=== PATIENT | female | born 1935 | race Caucasian/White ===

== ENCOUNTER 2016-10-27 09:11 | Emergency (ER) | payer OTHER ==
[2016-10-27 09:18] VITALS: TEMP 97.6; BMI 32.1
[2016-10-27] MEDS ORDERED: OXYCODONE/APAP 5/325MG COMBO TABLET PO ONE (10:44)
--- NOTE | 2016-10-27 10:50 | PDOC ---
History of Present Illness - General History Source: Patient, Family Exam Limitations: No Limitations - History of Present Illness Initial Comments: 10/27/16 11:07 The patient is an 81-year-old woman, accompanied by family, from home, with a significant past medical history of hypertension and chronic constipation who presents to the emergency department for further evaluation of left arm pain status post fall during the night. No pre-syncope, LOC, head injury. As per son , the patient at baseline is ambulatory and can perform her own daily activities and states that this event has never happened before. As per son, the patient woke up in the middle of the night to use the bathroom, when she felt lightheaded and fell on the left side of her body. She struck her left shoulder when she fell.She describes her pain as a tightness sensation that started from her shoulder and radiates down her elbow. Her pain is exacerbated with movements with a rated 10/10 in intensity. No recent illnesses. No other bodily pain or injury. No recent changes in medications. She denies Chest pain, SOB, dizziness, or palpitation. She denies headache, fever, chills, cough, N/V/D, visual changes, neck pain, back pain, pelvic pain, leg pain. No past medical history or diabetes mellitus, CVA/TIAs and MIs. Allergies: None Known Past Surgical History: None reported Social History: No tobacco, ETOH and recreational drug use. Primary Care Physician: Dr. Harry Donaldson [phone] Remainder of the review of systems is negative. <Latisha Ramirez - Last Filed: 10/27/16 12:42> <Shabnam Avina - Last Filed: 10/27/16 13:41> - General Chief Complaint: Lightheaded Stated Complaint: FALL/ LT ARM PAIN Time Seen by Provider: 10/27/16 10:29 Past History <Latisha Ramirez - Last Filed: 10/27/16 12:42> - Past Medical History HTN: Yes - Psycho/Social/Smoking Cessation Hx Anxiety: No Suicidal Ideation: No Smoking Status: No Smoking History: Never smoked Have you smoked in the past 12 months: No Number of Cigarettes Smoked Daily: 0 Information on smoking cessation initiated: No Hx Alcohol Use: No Drug/Substance Use Hx: No <Shabnam Avina Last Filed: 10/27/16 13:41> - Past Medical History Allergies/Adverse Reactions: Allergies Allergy/AdvReac Type Severity Reaction Status Date / Time No Known Allergies Allergy Verified 10/27/16 09:14 Home Medications: Ambulatory Orders Bisacodyl [Gentle Laxative] 5 mg PO PRN PRN 04/06/12 Valsartan [Diovan] 80 mg PO DAILY 04/06/12 Oxycodone HCl/Acetaminophen [Percocet 5-325 mg Tablet] 1 tab PO Q6H PRN #14 tablet MDD 5 10/27/16 Review of Systems - Review of Systems Able to Perform ROS?: Yes Comments:: 10/27/16 11:07 12 point review of systems is as per history of present illness and otherwise negative. <Ltaisha Ramirez - Last Filed: 10/27/16 12:42> *Physical Exam - Vital Signs Last Vital Signs Temp Pulse Resp BP Pulse Ox 97.6 F 82 18 170/72 100 10/27/16 09:16 10/27/16 09:16 10/27/16 09:16 10/27/16 09:16 10/27/16 09:16 <Latisha Ramirez - Last Filed: 10/27/16 12:42> - Vital Signs Last Vital Signs Temp Pulse Resp BP Pulse Ox 97.6 F 82 18 170/72 100 10/27/16 09:16 10/27/16 09:16 10/27/16 09:16 10/27/16 09:16 10/27/16 09:16 - Physical Exam Comments: 10/27/16 10:45 Physical exam Last Vital Signs Temp Pulse Resp BP Pulse Ox 97.6 F 82 18 170/72 100 10/27/16 09:16 10/27/16 09:16 10/27/16 09:16 10/27/16 09:16 10/27/16 09:16 GENERAL: The patient is awake, alert, and fully oriented, and in no apparent distress. HEAD: Normal with no signs of trauma. EYES: extraocular movements intact, sclera anicteric, conjunctiva are normal. ENT: Moist mucous membranes. NECK: Normal range of motion, supple no C-spine tenderness LUNGS: Breath sounds equal, clear to auscultation bilaterally. No wheezes, and no crackles. HEART: Regular rate and rhythm, normal S1 and S2 without murmur, rub or gallop. ABDOMEN: Soft, nontender, normoactive bowel sounds. No guarding, no rebound. No masses appreciated. BACK: No T spine or LS spine tenderness No posterior rib tenderness No CVA tenderness EXTREMITIES: Pelvis stable Full of motion of hips and knees bilaterally Full range of motion of right shoulder and right elbow There is exquisite tenderness of the left shoulder and left humerus to the left elbow There is full range of motion of the left wrist, and patient is able to make a fist without difficulty The radial pulse is full, sensation of the hand is intact, and the fingers are warm with good capillary refill NEUROLOGICAL: Motor 5 out of 5 and equal in the upper and lower extremities bilaterally-limited by pain in the left upper extremity Alert and answering questions, no evidence of head trauma, grossly nonfocal neurologic exam PSYCH: Normal mood, normal affect. SKIN: Warm, Dry, <Shabnam Avina - Last Filed: 10/27/16 13:41> ED Treatment Course - RADIOLOGY Radiology Studies Ordered: Category Date Time Status ELBOW-LEFT [RAD] Stat Radiology 10/27/16 10:41 Ordered HUMERUS-LEFT [RAD] Stat Radiology 10/27/16 10:41 Ordered SHOULDER-LEFT [RAD] Stat Radiology 10/27/16 10:41 Ordered <Shbanam Avina - Last Filed: 10/27/16 13:41> Medical Decision Making - Medical Decision Making 10/27/16 12:42 Called extension [id number] regarding unread images. <Latisha Ramirez - Last Filed: 10/27/16 12:42> - Medical Decision Making 10/27/16 10:48 Patient walking to the bathroom during the night, got a little dizzy, and fell landing on her left shoulder She has been having left shoulder and left humerus pain since then She denies any head injury or loss of consciousness There is no syncopal or presyncope as the cause of the fall She's had no recent intercurrent illnesses There was no head trauma or loss of consciousness She denies any other injury There is no recent change in medication dose, and no recent intercurrent illnesses 10/27/16 11:44 Left shoulder series as read by me- Impacted humeral head fracture/femoral neck fracture 10/27/16 12:19 Pt feeling much better after percocet Sling applied 10/27/16 13:03 Pt feeling much better with percocet 10/27/16 13:40 X-rays as read by radiology Acute left humeral neck fracture with no dislocation from the glenoid fossa No fracture of the elbow <Shanbam Avina - Last Filed: 10/27/16 13:41> *DC/Admit/Observation/Transfer - Attestations Scribe Attestion: 10/27/16 11:07 Documentation prepared by Latisha Ramirez, acting as forensic medical examiner for Shabnam Avina MD. <Latisha Ramirez - Last Filed: 10/27/16 12:42> <Shabnam Avina - Last Filed: 10/27/16 13:41> Diagnosis at time of Disposition: Fracture of humeral head - Discharge Dispostion Disposition: HOME Condition at time of disposition: Stable - Prescriptions Prescriptions: Oxycodone HCl/Acetaminophen [Percocet 5-325 mg Tablet] 1 tab PO Q6H PRN #14 tablet MDD 5 PRN Reason: Pain - Referrals Referrals: Juanpablo Donaldson [Primary Care Provider] - Francisco J Palmer MD [Staff Physician] - Kai Can MD [Staff Physician] - - Patient Instructions Printed Discharge Instructions: How to Use a Sling, DI for Humeral Fracture Additional Instructions: Keep sling in place Ice packs off and on to the shoulder Percocet if needed for pain-one pill every 6 hours This medication may cause some drowsiness, so please assist her with walking so she does not fall again Please call orthopedics-Dr. Palmer, or Dr. Can-today for an appointment She needs to be seen before the end of the week Keep the sling in place until seen by orthopedics The x-ray reading is a preliminary reading, if there is any change when the radiologist reads the x-rays you will be called Followup with your primary care physician in 24-48 hours Return immediately if you worsen in any way Take your medications as directed
[2016-10-27] MEDS ORDERED: OXYCODONE/APAP 5/325MG COMBO TABLET ONE (11:09)
[2016-10-27 13:21] VITALS: BP 157/60; PULSE 73
== END 2016-10-27 13:21 | disposition home or self-care (01) ==
LOC: JER 09:11
DX: S42.295A Other nondisplaced fracture of upper end of left humerus, initial encounter for closed fracture (principal); I10 Essential (primary) hypertension; W18.39XA Other fall on same level, initial encounter; Y93.89 Activity, other specified; Y92.012 Bathroom of single-family (private) house as the place of occurrence of the external cause
CPT/HCPCS: 73030-TC-LT; 73060-TC-LT; 73070-TC-LT; 99282-25

== ENCOUNTER 2017-05-05 14:40 | Emergency (ER) | payer OTHER ==
[2017-05-05 14:45] VITALS: BP 144/77; PULSE 78; TEMP 97.8; BMI 34.0
[2017-05-05] MEDS ORDERED: IBUPROFEN 600 MG TABLET (FP) PO ONE ×2 (15:13→15:18)
--- NOTE | 2017-05-05 15:26 | PDOC ---
History of Present Illness - General Chief Complaint: Pain Stated Complaint: KNEE PAIN Time Seen by Provider: 05/05/17 14:52 History Source: Patient, Family (Son Andrzej Bangura) Exam Limitations: No Limitations - History of Present Illness Initial Comments: 05/05/17 15:16 This is an 82yo woman with PMH HTN and left humeral head fx who presents today with 2 days of worsening atraumatic right knee pain. She states that she felt pain to anterior knee inferior to patella upon awakening on 05/03. She states walking makes the pain worse. She is unable to describe pain or rate severity. She is able to ambulate but states the knee feels unstable. She has tried using voltaren gel with minimal relief. Has not tried using oral pain medications. Timing/Duration: other (2 days) Severity: moderate Associated Symptoms: denies: denies symptoms Past History - Past Medical History Allergies/Adverse Reactions: Allergies Allergy/AdvReac Type Severity Reaction Status Date / Time No Known Allergies Allergy Verified 05/05/17 14:46 Home Medications: Ambulatory Orders Valsartan [Diovan] 80 mg PO DAILY 04/06/12 HTN: Yes - Psycho/Social/Smoking Cessation Hx Anxiety: No Suicidal Ideation: No Smoking Status: No Smoking History: Never smoked Have you smoked in the past 12 months: No Number of Cigarettes Smoked Daily: 0 Hx Alcohol Use: No Drug/Substance Use Hx: No Substance Use Type: None Review of Systems - Review of Systems Able to Perform ROS?: Yes Is the patient limited Gambian proficient: Yes Constitutional: No: Symptoms Reported HEENTM: No: Symptoms Reported Respiratory: No: Symptoms reported Cardiac (ROS): No: Symptoms Reported ABD/GI: No: Symptoms Reported : No: Symptoms Reported Musculoskeletal: Yes: Joint Pain (right knee) Integumentary: No: Symptoms Reported Neurological: No: Symptoms reported *Physical Exam - Vital Signs Last Vital Signs Temp Pulse Resp BP Pulse Ox 97.8 F 78 20 144/77 98 05/05/17 14:41 05/05/17 14:41 05/05/17 14:41 05/05/17 14:41 05/05/17 14:41 - Physical Exam General Appearance: Yes: Appropriately Dressed. No: Apparent Distress HEENT: positive: EOMI, ALESSIA, Normal Voice Neck: positive: Trachea midline, Supple Respiratory/Chest: positive: Lungs Clear, Normal Breath Sounds. negative: Respiratory Distress Cardiovascular: positive: Regular Rhythm, Regular Rate, S1, S2, Edema (non- pitting dependant bilateral lower extremities) Gastrointestinal/Abdominal: positive: Normal Bowel Sounds, Soft. negative: Tender, Organomegaly Musculoskeletal: positive: Normal Inspection. negative: CVA Tenderness, Decreased Range of Motion Extremity: positive: Normal Range of Motion, Other ((-) Donny's, (-) Rboert's. no calf tenderness or cords present.) Integumentary: positive: Normal Color, Dry, Warm. negative: Ecchymosis Neurologic: positive: mold construction supervisor II-XII NML intact, Fully Oriented, Alert, Normal Mood/ Affect, Motor Strength 02/05 ED Treatment Course - RADIOLOGY Radiology Studies Ordered: Category Date Time Status KNEE 3 POS-RIGHT [RAD] Stat Radiology 05/05/17 15:14 Ordered Medical Decision Making - Medical Decision Making 05/05/17 15:26 This is an 82yo woman with PMH HTN and left humeral head fx who presents today with 2 days of worsening atraumatic right knee pain. She states that she felt pain to anterior knee inferior to patella upon awakening on 05/03. She states walking makes the pain worse. She is unable to describe pain or rate severity. She is able to ambulate but states the knee feels unstable. She has tried using voltaren gel with minimal relief. Has not tried using oral pain medications. No crepitus palpated. No obvious deformity. Able to ROM against resistance. (-) Donny's sign. Dx: knee pain - Motrin 600mg now - Xrays of right knee - re-evaluate 05/05/17 15:51 Xrays show medial narrowing of right knee. No acute fracture present. Pain relief after PO motrin. ortho f/u with Pamella *DC/Admit/Observation/Transfer Diagnosis at time of Disposition: Arthritis of right knee - Discharge Dispostion Disposition: HOME Condition at time of disposition: Stable Admit: No - Referrals Referrals: Kai Can MD [Staff Physician] - - Patient Instructions Printed Discharge Instructions: DI for Arthritis Additional Instructions: Rest will make your pain better. Rent a walker and use until you follow up with Dr. Can. Take ibuprofen or naproxen for pain as directed by sole polisher's instructions. Use diclofenac gel as previously prescribed. Eat a well balanced diet. Return to the ER for worsening pain, swelling, inability to walk or any other concerns.
== END 2017-05-05 16:08 | disposition home or self-care (01) ==
LOC: JERFT 14:40
DX: M17.11 Unilateral primary osteoarthritis, right knee (principal); I10 Essential (primary) hypertension
CPT/HCPCS: 73562-TC-RT; 99281-25

== ENCOUNTER 2018-05-30 16:14 | Emergency (ER) | payer OTHER ==
--- NOTE | 2018-05-30 16:22 | PDOC ---
Rapid Medical Evaluation Chief Complaint: Pain Time Seen by Provider: 05/30/18 16:22 Medical Evaluation: Allergies Allergy/AdvReac Type Severity Reaction Status Date / Time No Known Allergies Allergy Verified 05/30/18 16:18 05/30/18 16:24 This is an 83-year old female with history of left humeral head fx, hysterectomy (fibroids), bilateral eye surgery (last one month ago), chronic knee pain requiring steroid injections brought in by family for one month of intermittent RUE swelling. Hand is not painful, but seems "weak" (she is unable to close it). No chest pain. No LE edema. Alert, oriented, no distress. RRR, S1/S2. Lungs CTAB. RUE edema. Plan: -EKG -Labs including CBC, CMP, PT/INR -RUE u/s r/o DVT -No Main ED for further evaluation
[2018-05-30 16:24] VITALS: TEMP 98; BMI 34.0
[2018-05-30 16:59] LABS: BASO % 0.8 % (0-2.0); EOS % 1.5 % (0-4.5); LYMPH % 17.2 % (8-40); MCH 27.1 pg (25.7-33.7); MCHC 33.3 g/dl (32.0-36.0); MEAN CELL VOLUME 81.3 fl (80-96); MEAN PLT VOLUME 7.7 fl (7.5-11.1); MONO % 7.4 % (3.8-10.2); NEUT % 73.1 % (42.8-82.8); PLATELET COUNT 403 K/MM3 (134-434); RBC 3.69 M/mm3 (3.60-5.2); RDW 13.7 % (11.6-15.6); WHITE BLOOD COUNT 7.1 K/mm3 (4.0-10.0)
[2018-05-30 17:30] LABS: ALBUMIN 2.9 g/dl (3.4-5.0); ANION GAP 9 MMOL/L (8-16); BILIRUBIN,TOTAL 0.3 mg/dL (0.2-1.0); BLOOD UREA NITROGEN 22 mg/dL (7-18); CHLORIDE 107 mmol/L (98-107); CO2 25 mmol/L (21-32); CREATININE 0.6 mg/dL (0.55-1.02); GLUCOSE,RANDOM 154 mg/dL (74-106); POTASSIUM 4.8 mmol/L (3.5-5.1); SGOT/AST 17 U/L (15-37); SGPT/ALT 29 U/L (12-78); SODIUM 141 mmol/L (136-145); TOT PROT 7.1 g/dl (6.4-8.2)
[2018-05-30 17:31] LABS: ALK PHOS 102 U/L (45-117)
[2018-05-30 17:44] LABS: INR 1.04 (0.83-1.09); PROTHROMBIN TIME (PATIENT) 11.8 SEC (9.7-13.0)
--- NOTE | 2018-05-30 18:41 | PDOC ---
History of Present Illness <Yumiko Alfonso - Last Filed: 05/30/18 19:46> - General History Source: Patient, Family Exam Limitations: No Limitations - History of Present Illness Initial Comments: 05/30/18 18:36 Ms. Lozano is a 83 yo F with a hx of bilateral chronic knee pain and HTN who presents to the ED with intermittent RUE swelling for the past 2 months. She states she has been having RUE swelling that is worse in the morning and improves throughout the day. She complains of concurrent progressive weakness generally, but more acutely throughout her right arm and has decreased gripping strength. 2 years ago, she states she fractured her right humerus at the head. Denies the following: fever, SOB, chest pain, nausea vomiting, dizziness, lightheadness, melena, hematochezia, dysuria, hematuria, abdominal pain, and leg swelling/pain. Denies hx of blood clots, cancer, prolonged sitting/ immobilization, and recent extremity surgeries. Pmhx: HTN Shx: R cataract repair 1 month ago. L cataract repair 1 year ago. Meds: Does not know full list, but denies anticoagulants and aspirin. Social hx: Denies smoking, drugs, and alcohol use. Allergies: NKDA. <Nomi Anderson - Last Filed: 05/31/18 06:50> - General Chief Complaint: Pain Stated Complaint: RT ARM PAIN Time Seen by Provider: 05/30/18 16:22 Past History <Yumiko Alfonso - Last Filed: 05/30/18 19:46> - Past Medical History COPD: No HTN: Yes - Suicide/Smoking/Psychosocial Hx Smoking Status: No Smoking History: Never smoked Have you smoked in the past 12 months: No Number of Cigarettes Smoked Daily: 0 Information on smoking cessation initiated: No Hx Alcohol Use: No Drug/Substance Use Hx: No Substance Use Type: None <Nomi Anderson - Last Filed: 05/31/18 06:50> - Past Medical History Allergies/Adverse Reactions: Allergies Allergy/AdvReac Type Severity Reaction Status Date / Time No Known Allergies Allergy Verified 05/30/18 16:18 Home Medications: Ambulatory Orders Valsartan [Diovan] 80 mg PO DAILY 04/06/12 Review of Systems - Review of Systems Able to Perform ROS?: Yes Constitutional: Yes: Weakness. No: Chills, Diaphoresis, Fever HEENTM: No: Recent change in vision, Ear Pain, Nose Pain, Throat Pain, Mouth Pain Respiratory: No: Cough, Shortness of Breath, Hemoptysis Cardiac (ROS): No: Chest Pain, Palpitations, Syncope, Chest Tightness ABD/GI: No: Blood Streaked Bowels, Constipated, Diarrhea, Nausea, Rectal Bleeding, Vomiting, Tarry Stools : No: Burning, Dysuria, Hematuria Musculoskeletal: Yes: Joint Pain, Muscle Weakness. No: Back Pain Integumentary: No: Rash Neurological: Yes: Weakness. No: Headache, Numbness, Paresthesia, Ataxia, Dizziness Psychiatric: No: Change in Appetite Endocrine: No: Unexplained Weight Gain Hematologic/Lymphatic: No: Anemia <Nomi Anderson - Last Filed: 05/31/18 06:50> *Physical Exam - Vital Signs Last Vital Signs Temp Pulse Resp BP Pulse Ox 98.0 F 81 18 153/61 100 05/30/18 16:21 05/30/18 16:21 05/30/18 16:21 05/30/18 16:21 05/30/18 16:21 <Yumiko Alfonso - Last Filed: 05/30/18 19:46> - Vital Signs Last Vital Signs Temp Pulse Resp BP Pulse Ox 98.0 F 81 18 153/61 100 05/30/18 16:21 05/30/18 16:21 05/30/18 16:21 05/30/18 16:21 05/30/18 16:21 <Nomi Anderson - Last Filed: 05/31/18 06:50> ED Treatment Course - LABORATORY CBC & Chemistry Diagram: 05/30/18 16:53 05/30/18 16:53 - ADDITIONAL ORDERS Additional order review: Laboratory Results 05/30/18 05/30/18 16:53 16:53 PT with INR 11.80 INR 1.04 Sodium 141 Potassium 4.8 Chloride 107 Carbon Dioxide 25 Anion Gap 9 BUN 22 H Creatinine 0.6 Creat Clearance w eGFR > 60 Random Glucose 154 H Calcium 9.0 Total Bilirubin 0.3 AST 17 ALT 29 Alkaline Phosphatase 102 Total Protein 7.1 Albumin 2.9 L 05/30/18 16:53 RBC 3.69 MCV 81.3 MCHC 33.3 RDW 13.7 MPV 7.7 D Neutrophils % 73.1 Lymphocytes % 17.2 D Monocytes % 7.4 Eosinophils % 1.5 D Basophils % 0.8 <Yumiko Alfonso - Last Filed: 05/30/18 19:46> - LABORATORY CBC & Chemistry Diagram: 05/30/18 16:53 05/30/18 16:53 - ADDITIONAL ORDERS Additional order review: Laboratory Results 05/30/18 05/30/18 16:53 16:53 PT with INR 11.80 INR 1.04 Sodium 141 Potassium 4.8 Chloride 107 Carbon Dioxide 25 Anion Gap 9 BUN 22 H Creatinine 0.6 Creat Clearance w eGFR > 60 Random Glucose 154 H Calcium 9.0 Total Bilirubin 0.3 AST 17 ALT 29 Alkaline Phosphatase 102 Total Protein 7.1 Albumin 2.9 L 05/30/18 16:53 RBC 3.69 MCV 81.3 MCHC 33.3 RDW 13.7 MPV 7.7 D Neutrophils % 73.1 Lymphocytes % 17.2 D Monocytes % 7.4 Eosinophils % 1.5 D Basophils % 0.8 - RADIOLOGY Radiology Studies Ordered: Category Date Time Status SHOULDER-RIGHT [RAD] Stat Radiology 05/30/18 18:23 Ordered <MonicaNomi - Last Filed: 05/31/18 06:50> Medical Decision Making - Medical Decision Making 05/31/18 06:46 83 yo F with hx of htn presents to ED with RUE swelling ongoing intermittently for 2 months with generalized weakness in the proximal joints ddx: DVT, rheumatological (polymyalgia rheumatica), osteoarthritis, nerve impingement secondary to previous fracture in the axillary region, Initial vitals: Initial Vital Signs Temp Pulse Resp BP Pulse Ox 98.0 F 81 18 153/61 100 05/30/18 16:21 05/30/18 16:21 05/30/18 16:21 05/30/18 16:21 05/30/18 16:21 Work up Laboratory Tests 05/30/18 05/30/18 05/30/18 16:53 16:53 16:53 WBC 7.1 RBC 3.69 Hgb 10.0 L Hct 30.0 L D MCV 81.3 MCH 27.1 MCHC 33.3 RDW 13.7 Plt Count 403 D MPV 7.7 D Absolute Neuts (auto) 5.2 Neutrophils % 73.1 Lymphocytes % 17.2 D Monocytes % 7.4 Eosinophils % 1.5 D Basophils % 0.8 Nucleated RBC % 0 PT with INR 11.80 INR 1.04 Sodium 141 Potassium 4.8 Chloride 107 Carbon Dioxide 25 Anion Gap 9 BUN 22 H Creatinine 0.6 Creat Clearance w eGFR > 60 Random Glucose 154 H Calcium 9.0 Total Bilirubin 0.3 AST 17 ALT 29 Alkaline Phosphatase 102 Total Protein 7.1 Albumin 2.9 L xrays did not show acute fractures in the shoulder region or dislocations. RUE US did not show the presence of a DVT. Based on the patient's hx and presenting symptoms, it seems to be more rheumatological such as PMR? Recommended to patient to follow up with PCP and will refer her to a safety risk lead. Dispo: Home <Nomi Anderson - Last Filed: 05/31/18 06:50> *DC/Admit/Observation/Transfer - Discharge Dispostion Decision to Admit order: No <NatyYumiko Amarilis - Last Filed: 05/30/18 19:46> - Discharge Dispostion Decision to Admit order: No <Nomi Anderson - Last Filed: 05/31/18 06:50> Diagnosis at time of Disposition: Arm pain Qualifiers: Laterality: right Qualified Code(s): M79.601 - Pain in right arm - Discharge Dispostion Disposition: HOME Condition at time of disposition: Improved - Referrals Referrals: Wilver Prado MD [Staff Physician] - Berlin Kirby MD [Staff Physician] - Kady Phillips MD [Staff Physician] - Markell Adkins DO [Staff Physician] - - Patient Instructions Printed Discharge Instructions: DI for Arm Pain Additional Instructions: you have a normal ultrasound, no clots you may need a rheumatology /immunology workup, specialists have been provided for followup your blood work is normal as well. please follow up with primary doctor for further workup and evaluation, as your blood work is reassuringly normal. Print Language: ANGUILLAN Addendum entered and electronically signed by Nomi Anderson RESIDENT 06:56: Physical Exam Vital Sings: Vital Signs Temperature 98.0 F 05/30/18 20:11 Pulse Rate 87 05/30/18 20:11 Respiratory Rate 18 05/30/18 20:11 Blood Pressure 145/79 05/30/18 20:11 O2 Sat by Pulse Oximetry (%) 98 05/30/18 20:11 Physical exam for visit on 05/30/2018 Constitutional: Yes: Well Nourished, No Distress, Calm Eyes: Yes: WNL, EOM Intact, PERRL HENT: Yes: WNL, Atraumatic, Normocephalic Neck: Yes: WNL. No: Lymphadenopathy, Tenderness Cardiovascular: Yes: WNL, Regular Rate and Rhythm Respiratory: Yes: WNL, Regular, CTA Bilaterally ...Breath Sounds: DANNY Clear, LLL Clear, RUL Clear, RML Clear, RLL Clear Gastrointestinal: Yes: WNL, Normal Bowel Sounds, Soft Renal/: Yes: WNL. No: CVA Tenderness - Left, CVA Tenderness - Right Musculoskeletal: Yes: Other (Joint stiffness in the proximal regions (hips and shoulders) bilaterally. Mild swelling of arms throughout bilaterally with intact pulses and equal bilaterally motor strength and sensation in the upper extremities. ) Extremities: Yes: Other (refer to note in musculoskeletal). No: Calf Tenderness , Cold, Cyanosis, Deformity, Delayed Capillary Refill, Erythema Integumentary: Yes: WNL Neurological: Yes: WNL, Alert, Oriented, Cran Nerves II-XII Intact. No: Ataxia , Confusion, Facial Droop, Loss of Sensation, Numbness, Seizure, Unsteady Gait ...Motor Strength: WNL Psychiatric: Yes: WNL, Alert, Oriented Labs: CBC, BMP 05/30/18 16:53 05/30/18 16:53
--- NOTE | 2018-05-30 19:34 | PDOC ---
Attending Attestation - Resident Resident Name: MonicaNomi - ED Attending Attestation I have performed the following: I have examined & evaluated the patient, The case was reviewed & discussed with the resident, I agree w/resident's findings & plan - HPI HPI: 05/30/18 19:40 Blake 83 year old female, with a significant past medical history of HTN, left humeral head fracture, and chronic knee pain, who presents to the emergency department with, 2 months of intermittent right upper extremity swelling, weakness, and pain. As per patients family, her symptoms are worse in the mornings with associated decreased gripping strength. The patient is being followed up by Dr. Anika Geronimo for her symptoms. As per family, the doctor believes it is due to her age. She denies recent fevers, chills, headache or dizziness. She denies recent nausea, vomit, diarrhea or constipation. She denies recent dysuria, frequency, urgency or hematuria. She denies recent chest pain or shortness of breath. Allergies: None Known Past Surgical History: None reported Social History: No tobacco, ETOH and recreational drug use. Primary Care Physician: Dr. Anika Geronimo [phone] - Physicial Exam PE: 05/30/18 19:41 NAD, well appearing, MMM, nl conjunctiva, anicteric; neck supple. lungs clear, RRR, abdomen soft nontender. ORELLANA x4, no focal neuro deficits. No peripheral edema. normal color for ethnicity, WWP. BUE prox and distal strength in all groups 5/5 against resistance. able to fully range back, no tenderness. - Medical Decision Making 05/30/18 19:40 A portion of this note was documented by scribe services under my direction. I have reviewed the details of the note, within reason, and agree with the documentation with the following case summary and management plan written by me. Blake 83 YOF 83-year old female with history of left humeral head fx, hysterectomy (fibroids), bilateral eye surgery (last one month ago), chronic knee pain requiring steroid injections brought in by family for one month of intermittent RUE swelling. Presenting with RUE pain and swelling x 2 months intermittently, worse in the morning and also lower back pain with getting up from sitting position. no trauma. has seen her PMD Dr. Serrano for sx and evaluated as outpatient. DDx. arthritis, msk pain. DVT, rheumatologic condition, PMR, inflammatory arthritis. Vital signs wnl. Duplex RUE_ no DVT, no acute findings no injuries, doubt fx or effusion, XR shoulder ordered to eval for tendonitis or calcific abnormalities. no focal neuro deficits noted., no swelling of extremity noted and NVI labs wnl, baseline anemia, no acute changes. encouraged followup with PMD, referrals for neuro and rheum given, needs outpatient eval for possible underlying chronic etiology. also consider inflammatory vs osteoarthritis with prox weakness and no objective findings to suggest emergent neuro condition. DC in stable condition, no pain noted. return precautions discussed. 05/30/18 19:45
[2018-05-30 20:12] VITALS: BP 145/79; PULSE 87
--- NOTE | 2018-05-31 09:46 | EKG ---
Test Reason : Blood Pressure : / mmHG Vent. Rate : 077 BPM Atrial Rate : 077 BPM P-R Int : 184 ms QRS Dur : 092 ms QT Int : 358 ms P-R-T Axes : 076 -24 052 degrees QTc Int : 405 ms NORMAL SINUS RHYTHM VOLTAGE CRITERIA FOR LEFT VENTRICULAR HYPERTROPHY ABNORMAL ECG NO PREVIOUS ECGS AVAILABLE Confirmed by John Dexter MD ([id number]) on 05/31/2018 9:46:28 AM Referred By: Confirmed By:John Dexter MD
== END 2018-05-30 20:12 | disposition home or self-care (01) ==
LOC: JER 16:14
DX: M79.601 Pain in right arm (principal); I10 Essential (primary) hypertension; M25.561 Pain in right knee; M25.562 Pain in left knee; G89.29 Other chronic pain; Z87.81 Personal history of (healed) traumatic fracture
CPT/HCPCS: 36415; 73030-TC-RT-FY; 80053; 85025; 85610; 93005; 93010; 93971; 99284-25

== ENCOUNTER 2020-12-27 14:40 | Emergency (ER) | payer OTHER ==
[2020-12-27 14:50] VITALS: TEMP 99; BMI 29.0
[2020-12-27 15:18] VITALS: BP 135/66; PULSE 70
== END 2020-12-27 16:20 | disposition home or self-care (01) ==
LOC: FER 14:40
DX: H61.23 Impacted cerumen, bilateral (principal)
CPT/HCPCS: 99282-25